=== PATIENT | male | born 1940 | race Caucasian/White ===

== ENCOUNTER 2018-11-25 11:10 | Emergency (ER) | payer MEDICARE ==
[~2018-11-25] VITALS: Ht 182.9 cm; Wt 100.0 kg
[2018-11-25] MEDS ORDERED: SULF1TAB49 PO (12:47)
[2018-11-25] MEDS ORDERED: CEPH-572 PO (12:47)
[2018-11-25 13:00] VITALS: BP 142/80
== END 2018-11-25 13:02 | disposition home or self-care (01) ==
LOC: ER 11:11
DX: T81.89XA Other complications of procedures, not elsewhere classified, initial encounter (principal); L03.115 Cellulitis of right lower limb; M19.90 Unspecified osteoarthritis, unspecified site; Z98.890 Other specified postprocedural states; Z79.2 Long term (current) use of antibiotics; Y83.9 Surgical procedure, unspecified as the cause of abnormal reaction of the patient, or of later complication, without mention of misadventure at the time of the procedure; Y92.89 Other specified places as the place of occurrence of the external cause
CPT/HCPCS: 99284